=== PATIENT | female | born 1985 | race American Indian/Alaskan Native ===

== ENCOUNTER 2019-02-08 02:27 | Emergency (ER) | payer MEDICAID ==
[2019-02-08] MEDS ORDERED: TORADOL IM ONE (05:36)
[2019-02-08] MEDS ORDERED: ZOFRAN ODT PO ONE (05:36)
[2019-02-08] MEDS ORDERED: BENADRYL PO ONE (05:36)
[2019-02-08] MEDS ORDERED: FIORICET PO ONE (05:37)
[2019-02-08 06:26] VITALS: BP 115/83
--- NOTE | 2019-02-08 06:26 | Emergency Department Report ---
ED Headache HPI - General Chief Complaint: Headache Stated Complaint: VOMITING AND HEADACHE Time Seen by Provider: 02/08/19 05:25 Source: patient Exam Limitations: no limitations - History of Present Illness Initial Comments: Patient is a 33-year-old -[place] female with a history of migraine headaches who presents to the ED with, in no acute exacerbation of her chronic migraine headaches, characterized frontal headache that radiates diffusely with nausea and vomiting for the last 6 hours. Patient denies dizziness, change in vision, lightheadedness, fever, chills, cough, neck pain, numbness of sinus congestion, abdominal pain, sore throat, chest pain or shortness of breath, extremity Injury or fall, syncope or seizures, facial numbness or tingling and loss of consciousness Timing/Duration: 4-6 hours Quality: severe, constant, sharp, throbbing Head Injury Location: frontal, global Recent Head Trauma: no recent headache/trauma, chronic headaches Associated Symptoms: denies symptoms, nausea/vomiting. denies: confusion, fatigue, facial pain, fever/chills, flushing, loss of consciousness, nasal congestion, nasal drainage, numbness in legs/feet, seizures, sinus infection, stiff neck, vision changes, weakness, other Allergies/Adverse Reactions: Allergies No Known Allergies Allergy (Unverified 02/08/19 02:33) Home Medications: Ambulatory Orders Cyclobenzaprine HCl [Flexeril 5 MG TAB] 5 mg PO Q8HR #12 tab 05/13/16 Ibuprofen [Motrin] 800 mg PO Q8HR PRN #14 tablet 05/13/16 Amoxicillin [Trimox CAP] 500 mg PO Q8H #30 capsule 02/08/19 Butalb/Acetamin/Caff 50-325-40 [Fioricet 50-325-40] 1 tab PO Q6HR PRN #15 tab 02/08/19 Ketorolac [Toradol] 10 mg PO Q8H PRN #20 tablet 02/08/19 Promethazine [Phenergan] 25 mg PO Q6HR PRN #24 tab 02/08/19 ED Review of Systems ROS: Stated complaint: VOMITING AND HEADACHE Other details as noted in HPI Constitutional: denies: chills, fever Eyes: denies: eye pain, eye discharge, vision change ENT: denies: ear pain, throat pain Respiratory: denies: cough, shortness of breath, wheezing Cardiovascular: denies: chest pain, palpitations, edema, syncope, paroxysmal nocturnal dyspnea Endocrine: no symptoms reported. denies: increased hunger, unexplained weight gain Gastrointestinal: nausea, vomiting. denies: abdominal pain, diarrhea Genitourinary: denies: urgency, dysuria, discharge Musculoskeletal: denies: back pain, joint swelling, arthralgia Skin: denies: rash, lesions Neurological: headache. denies: weakness, paresthesias Psychiatric: denies: anxiety, depression Hematological/Lymphatic: denies: easy bleeding, easy bruising ED Past Medical Hx - Past Medical History Previous Medical History?: No - Surgical History Past Surgical History?: Yes Additional Surgical History: - Social History Smoking Status: Never Smoker Substance Use Type: None - Medications Home Medications: Home Medications Medication Instructions Recorded Confirmed Last Taken Type Cyclobenzaprine HCl [Flexeril 5 MG 5 mg PO Q8HR #12 tab 05/13/16 Unknown Rx TAB] Ibuprofen [Motrin] 800 mg PO Q8HR PRN #14 tablet 05/13/16 Unknown Rx Amoxicillin [Trimox CAP] 500 mg PO Q8H #30 capsule 02/08/19 Unknown Rx Butalb/Acetamin/Caff 50-325-40 1 tab PO Q6HR PRN #15 tab 02/08/19 Unknown Rx [Fioricet 50-325-40] Ketorolac [Toradol] 10 mg PO Q8H PRN #20 tablet 02/08/19 Unknown Rx Promethazine [Phenergan] 25 mg PO Q6HR PRN #24 tab 02/08/19 Unknown Rx ED Physical Exam - General Limitations: No Limitations General appearance: alert, in no apparent distress - Head Head exam: Present: atraumatic, normocephalic, normal inspection - Eye Eye exam: Present: normal appearance, PERRL, EOMI. Absent: scleral icterus, conjunctival injection, nystagmus Pupils: Present: normal accommodation - ENT ENT exam: Present: normal exam, normal orophraynx, mucous membranes moist, TM's normal bilaterally, normal external ear exam, other (Palpable severe tenderness of frontal and bitemporal scalp) - Neck Neck exam: Present: normal inspection, full ROM. Absent: tenderness, meningismus, lymphadenopathy, thyromegaly - Respiratory Respiratory exam: Present: normal lung sounds bilaterally. Absent: respiratory distress, wheezes, rales, chest wall tenderness - Cardiovascular Cardiovascular Exam: Present: regular rate, normal rhythm, normal heart sounds. Absent: systolic murmur, diastolic murmur, rubs, gallop - GI/Abdominal GI/Abdominal exam: Present: soft, normal bowel sounds. Absent: distended, tenderness, guarding, rebound, hyperactive bowel sounds, hypoactive bowel sounds, organomegaly - Rectal Rectal exam: Present: deferred - Extremities Exam Extremities exam: Present: normal inspection, full ROM, normal capillary refill - Back Exam Back exam: Present: normal inspection, full ROM. Absent: tenderness, CVA tenderness (R), CVA tenderness (L), muscle spasm, paraspinal tenderness - Neurological Exam Neurological exam: Present: alert, oriented X3, CN II-XII intact, normal gait, reflexes normal - Psychiatric Psychiatric exam: Present: normal affect, normal mood - Skin Skin exam: Present: warm, dry, intact, normal color. Absent: rash ED Course Vital Signs 02/08/19 02:31 Temperature 98.0 F Pulse Rate 95 H Respiratory 18 Rate Blood Pressure 109/79 O2 Sat by Pulse 98 Oximetry - Reevaluation(s) Reevaluation #1: 02/08/19 06:27 Patient is alert and oriented 3 and is not in distress with normal vital signs. Patient has no neurological signs or symptoms, and physical exam is unremarkable. Patient was treated in the ED for pain and decided home and medications, and advised to follow up with her primary care physician in 5-7 days for reevaluation. Patient was otherwise return to the ED immediately if symptoms get worse. 02/08/19 06:27 ED Medical Decision Making - Medical Decision Making Patient is alert and oriented 3 and is not in distress with normal vital signs. Patient has no neurological signs or symptoms, and physical exam is unremarkable. Patient was treated in the ED for pain and decided home and medications, and advised to follow up with her primary care physician in 5-7 days for reevaluation. Patient was otherwise return to the ED immediately if symptoms get worse. - Differential Diagnosis sinus headache, migraine headache, sinusitis, nausea, vomiting, dehydration Critical care attestation.: If time is entered above; I have spent that time in minutes in the direct care of this critically ill patient, excluding procedure time. ED Disposition Clinical Impression: Nausea and vomiting in adult Migraine headache without aura Qualifiers: Status migrainosus presence: without status migrainosus Intractability: not intractable Qualified Code(s): G43.009 - Migraine without aura, not intractable, without status migrainosus Acute frontal sinusitis Qualifiers: Recurrence: non-recurrent Qualified Code(s): J01.10 - Acute frontal sinusitis, unspecified Disposition: TO HOME OR SELFCARE Is pt being admited?: No Does the pt Need Aspirin: No Condition: Stable Instructions: Sinusitis (ED), Acute Nausea and Vomiting (ED), Migraine Headache (ED) Additional Instructions: Take medications with food, drink plenty of fluids and follow up with your primary care physician in 5-7 days for reevaluation. Return to the ED immediately if symptoms get worse. Prescriptions: Butalb/Acetamin/Caff 50-325-40 [Fioricet 50-325-40] 1 tab PO Q6HR PRN #15 tab PRN Reason: Headache Promethazine [Phenergan] 25 mg PO Q6HR PRN #24 tab PRN Reason: Nausea Ketorolac [Toradol] 10 mg PO Q8H PRN #20 tablet PRN Reason: Pain Amoxicillin [Trimox CAP] 500 mg PO Q8H #30 capsule Referrals: [facility] [Outside] - 3-5 Days Time of Disposition: 06:30 Print Language: OCCITAN
== END 2019-02-08 06:49 | disposition home or self-care (01) ==
LOC: ED 02:27
DX: G43.709 Chronic migraine without aura, not intractable, without status migrainosus (principal); J01.10 Acute frontal sinusitis, unspecified; R11.2 Nausea with vomiting, unspecified; Z79.1 Long term (current) use of non-steroidal anti-inflammatories (NSAID); Z79.899 Other long term (current) drug therapy
CPT/HCPCS: 99283; Q0162